=== PATIENT | male | born 2000 | race Caucasian/White ===

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

== ENCOUNTER 2022-05-05 20:41 | Emergency (ER) | payer OTHER ==
[~2022-05-05] VITALS: Ht 188 cm; Wt 107.2 kg
[~2022-05-05 20:41] MED LIST: DICL75TA PO
[2022-05-05 20:42] VITALS: BP 136/99
[2022-05-05] MEDS ORDERED: BOOSTRIX/ADACEL VACCINE (DIPHTH/PERTUSS/ACELL/TETANUS) 0.5ML SYR IM.IMMUN ONE (21:50)
[2022-05-05] MEDS ORDERED: AUGMENTIN 875 MG TAB PO ONE (21:50)
[2022-05-05] MEDS ORDERED: NEOSPORIN OINT 0.9 GM PKT TOP ONE (21:50)
[2022-05-05] MEDS ORDERED: LIDOCAINE W/EPINEPHRINE 1% 20ML VIAL SC ONE (21:50)
[2022-05-05] MEDS ORDERED: AMOX875T2 PO (22:47)
[2022-05-05] MEDS ORDERED: BACI28.43 TOP (22:47)
== END 2022-05-05 23:02 | disposition home or self-care (01) ==
LOC: M ED 20:41
DX: S51.852A Open bite of left forearm, initial encounter (principal); S51.831A Puncture wound without foreign body of right forearm, initial encounter; W54.0XXA Bitten by dog, initial encounter; Z91.030 Bee allergy status; Z23 Encounter for immunization

== ENCOUNTER 2022-05-14 08:01 | Emergency (ER) | payer OTHER ==
[~2022-05-14] VITALS: Ht 188 cm; Wt 111.2 kg
[~2022-05-14 08:01] MED LIST changes: +AMOX875T2 PO; +BACI28.43 TOP
[2022-05-14 08:02] VITALS: BP 155/82
== END 2022-05-14 08:30 | disposition home or self-care (01) ==
LOC: M ED 08:01
DX: Z48.02 Encounter for removal of sutures (principal); Z91.030 Bee allergy status